=== PATIENT | male | born 1940 | race Caucasian/White ===

== ENCOUNTER → 2016-12-15 | Outpatient (CLI) | payer MEDICARE ==
--- NOTE | 2016-12-15 16:57 | PCVCIMAG ---
APPROVED REPORT Study performed: 12/15/2016 15:37:17 EXAM: Comprehensive 2D, Doppler, and color-flow Echocardiogram Patient Location: Echo lab Status: routine Other Information Study Quality: Adequate Indications Atrial Fib. Pacemaker 2D Dimensions RVDd: 29.15 mm IVSd: 13.54 (7-11mm)LVOT Diam: 23.30 (18-24mm) LVDd: 37.27 mm PWd: 11.36 (7-11mm)Ascending Ao: 34.55 (22-36mm) LVDs: 32.55 (25-40mm) Left Atrium: 45.99 (27-40mm) Aortic Root: 31.34 mm LV Single Plane 4CH: 39.63 % LV Single Plane 2CH: 51.03 %Sanchez's LVEF: 45.33 % Biplane EF: 45.6 % Volumes Left Atrial Volume (Systole) Single Plane 4CH: 41.65 mLSingle Plane 2CH: 54.45 mL Aortic Valve AoV Peak Stanton.: 1.23 m/s AO Peak Gr.: 6.06 mmHgLVOT Max P.81 mmHg LVOT Max V: 0.84 m/s ELISA Vmax: 2.90 cm2 Pulmonary Valve PV Peak Gr.: 2.21 mmHg Tricuspid Valve TR Peak Stanton.: 2.26 m/s TR Peak Gr.: 20.45 mmHg Left Ventricle The left ventricle is normal size. There is normal LV segmental wall motion. There is normal left ventricular wall thickness. Left ventricular systolic function is normal. The left ventricular ejection fraction is within the normal range. LVEF is 40-45%. The left ventricular diastolic function is normal. Right Ventricle The right ventricle is normal size. The right ventricular systolic function is normal. Atria The left atrium size is normal. The right atrium size is normal. Aortic Valve The aortic valve is normal in structure. No aortic regurgitation is present. There is no aortic valvular stenosis. Mitral Valve The mitral valve is normal in structure. There is no mitral valve regurgitation noted. No evidence of mitral valve stenosis. Tricuspid Valve The tricuspid valve is normal in structure. There is no tricuspid valve regurgitation noted. Pulmonic Valve The pulmonary valve is normal in structure. There is no pulmonic valvular regurgitation. Great Vessels The aortic root is normal in size. IVC is normal in size and collapses with >50% inspiration Pericardium There is no pericardial effusion. <Conclusion> The left ventricle is normal size. There is normal left ventricular wall thickness. LVEF is 40-45%. The right ventricle is normal size. The left atrium size is normal. There is no mitral valve regurgitation noted. The aortic valve is normal in structure. There is no tricuspid valve regurgitation noted. There is no pericardial effusion.
== END | disposition home or self-care (01) ==
LOC: PCVCIMAG 15:03
PROVIDERS: ATTEND Internal Medicine Cardiovascular Disease
DX: Z45.018 Encounter for adjustment and management of other part of cardiac pacemaker (principal); I48.91 Unspecified atrial fibrillation; I10 Essential (primary) hypertension; I49.5 Sick sinus syndrome; E78.00 Pure hypercholesterolemia, unspecified; E78.5 Hyperlipidemia, unspecified; Z79.899 Other long term (current) drug therapy; Z87.891 Personal history of nicotine dependence
CPT/HCPCS: 80061; 93306; G0463

== ENCOUNTER → 2017-06-20 | Outpatient (CLI) | payer MEDICARE | END | disposition home or self-care (01) | LOC: PCVCCLINIC 14:00 | DX: I48.91 Unspecified atrial fibrillation (principal); I10 Essential (primary) hypertension; I49.5 Sick sinus syndrome; E78.00 Pure hypercholesterolemia, unspecified; Z95.0 Presence of cardiac pacemaker; Z87.891 Personal history of nicotine dependence; Z79.899 Other long term (current) drug therapy | CPT/HCPCS: 93005; 93280; G0463 ==

== ENCOUNTER → 2017-09-21 | Outpatient (CLI) | payer MEDICARE | END | disposition home or self-care (01) | LOC: PCVCCLINIC 10:56 | DX: I48.91 Unspecified atrial fibrillation (principal); I10 Essential (primary) hypertension; E78.00 Pure hypercholesterolemia, unspecified; Z95.0 Presence of cardiac pacemaker; Z87.891 Personal history of nicotine dependence; Z79.899 Other long term (current) drug therapy | CPT/HCPCS: 93280 ==